=== PATIENT | female | born 1945 | race Caucasian/White ===

== ENCOUNTER 2017-09-27 05:43 | Observation (INO) | payer OTHER ==
--- NOTE | 2017-09-21 14:07 | GHP ---
[f rep st] PREOP HISTORY AND PHYSICAL CURRENT COMPLAINT: Left knee pain. HISTORY OF PRESENT ILLNESS: The patient is a 72-year-old female with a several year history of left knee pain, worsening with use and with time. She wishes to have surgery in order to resolve the prob rebecca. DRUG ALLERGIES: Include sulfa medications. CURRENT MEDICATIONS: Include levothyroxine and Travatan Z. PRIOR MEDICAL PROBLEMS: Include arthritis, cancer, osteoporosis, and thyroid issues. PRIOR SURGERIES: Include orthopedic surgery x1 and oncology surgery x1. SOCIAL HISTORY: She has never been a smoker. She does not drink alcohol. PHYSICAL EXAMINATION: EYES: Pupils are equal, round, and reactive to light. CHEST: Clear to auscu ltation. HEART: Regular rate and rhythm. ABDOMEN: Soft and nontender. EXTREMITIES: Knee reveals mild varus deformity with osteophytic spurring noted medially. IMAGING: X-ray exam reveals [id number] osteoarthritic changes. PLAN: Take her to the operating room to undergo a left total knee arthroplasty. /[id number]/MODL
[2017-09-27] MEDS ORDERED: LR 1,000 ML IV ONE (06:12)
[2017-09-27] MEDS ORDERED: LIDOCAINE 1% 2 ML INJ ID PRN (06:13)
--- NOTE | 2017-09-27 06:50 | PDANEPAE ---
ANE History of Present Illness L knee osteoarthritis ANE Past Medical History - Cardiovascular History Hx Hypertension: No Hx Arrhythmias: No Hx Chest Pain: No Hx Coronary Artery / Peripheral Vascular Disease: No Hx CHF / Valvular Disease: No Hx Palpitations: No - Pulmonary History Hx COPD: No Hx Asthma/Reactive Airway Disease: No Hx Recent Upper Respiratory Infection: No Hx Oxygen in Use at Home: No Hx Sleep Apnea: No Sleep Apnea Screening Result - Last Documented: Negative - Neurologic History Hx Cerebrovascular Accident: No Hx Seizures: Yes Hx Dementia: No Neurologic History Comment: SEIAURES YRS AGO WHEN FIRST DX W/MS - Endocrine History Hx Diabetes: No Hypothyroid: Yes Hyperthyroid: No Obesity: no Endocrine History Comment: HYPOTHYROID - Renal History Hx Renal Disorders: No - Liver History Hx Hepatic Disorders: No - Neurological & Psychiatric Hx Hx Neurological and Psychiatric Disorders: No - Cancer History Hx Cancer: No Cancer History Comment: BREAST CANCER - Congenital Disorder History Hx Congenital Disorders: No - GI History GERD: no Hx Gastrointestinal Disorders: No - Other Health History Other Health History: ECZEMA SCALP - Chronic Pain History Chronic Pain: Yes (R HIP & L KNEE) - Surgical History Prior Surgeries: 1997 FRANCESCA LUMPECTOMY. SCOPE R KNEE. R TKA. EGD. WRIST SURG ANE Review of Systems Review of Systems: - Exercise capacity METS (RN): 4 METS ANE Patient History - Allergies Allergies/Adverse Reactions: Sulfa (Sulfonamide Antibiotics) Allergy (Intermediate, Verified 10/28/10 09:11) RASH, ITCHY - Home Medications Home Medications: Acetaminophen [Tylenol 325mg (*)] 325 mg PO DAILY PRN 09/02/17 [Last Taken Unknown] Ibuprofen [Motrin (*)] 200 mg PO DAILY PRN 09/02/17 [Last Taken Unknown] Levothyroxine [Synthroid 25 mcg (*)] 25 mcg PO DAILY06 09/02/17 [Last Taken Unknown] Travoprost Z 0.004% [Travatan Z 0.004% (*)] 1 drops EACHEYE HS 09/02/17 [Last Taken Unknown] - Anes Hx Anes Hx: no prior problems - Smoking Hx Smoking Status: Never smoked Marijuana use: No - Alcohol Use Alcohol Use: Rarely - Family Anes Hx Family Anes Hx: neg - N/A Family Hx Anesthesia Complications: NEG ANE Labs/Vital Signs - Vital Signs Height: 162.56 cm Weight: 74.843 kg ANE Physical Exam - Airway Neck exam: decreased ROM Mallampati Score: Class 3 Mouth exam: normal dental/mouth exam - Pulmonary Pulmonary: no respiratory distress, no rales or rhonchi, clear to auscultation - Cardiovascular Cardiovascular: regular rate and rhythym, no murmur, rub, or gallop - ASA Status ASA Status: III ANE Anesthesia Plan Anesthesia Plan: MAC, spinal Total IV Anesthesia: No
[2017-09-27] MEDS ORDERED: THROMBIN (BOVINE) 5,000 UNIT VIAL TP ONE ×2 (06:51→06:55)
[2017-09-27] MEDS ORDERED: BUPIVACAINE 0.5% 30 ML SDV ONE ×2 (06:51→07:26)
[2017-09-27] MEDS ORDERED: CALCIUM CHLORIDE 1 GM/10 ML INJ ONE (06:51)
[2017-09-27] MEDS ORDERED: BACITRACIN 50,000 UNITS/10 ML SYR IRR ONE (06:52)
[2017-09-27] MEDS ORDERED: POLYMYXIN B SULFATE 500,000 UNIT/10 ML SYR IRR ONE (06:52)
[2017-09-27] MEDS ORDERED: TRANEXAMIC ACID 1,000 MG/10 ML VIAL ONE (06:56)
[2017-09-27] MEDS ORDERED: fentaNYL 100 MCG/2 ML INJ ONE ×2 (07:06→09:04)
[2017-09-27] MEDS ORDERED: PROPOFOL/EMULSION 500 MG/50 ML BOTTLE IV ONE (07:06)
--- NOTE | 2017-09-27 07:15 | PDHPUP ---
History & Physical Update H&P update statement: This history and physical update is based on an assessment of the patient which was completed after admission or registration (within 24 hours), but prior to the surgery/procedure. H&P update: H&P reviewed & patient examined, no change in patient's condition since H&P completed
[2017-09-27] MEDS ORDERED: ACETAMINOPHEN 500 MG TAB PO ONE (07:18)
[2017-09-27] MEDS ORDERED: TRANEXAMIC ACID 3,000 MG in NS (SYRINGE) 50 ML IRR ONE (07:18)
[2017-09-27] MEDS ORDERED: ceFAZolin 2 GM/SWFI 2 GM/20 ML SYR IVP ONE (07:18)
[2017-09-27] MEDS ORDERED: PREGABALIN 150 MG CAP PO ONE (07:18)
[2017-09-27] MEDS ORDERED: ROPIVACAINE 0.2% 80 MG, EPINEPHrine 0.2 MG, KETOROLAC TROMETHAMINE 30 MG, morphINE 10 M... IU ONE (07:18)
[2017-09-27] MEDS ORDERED: LIDOCAINE 2% 5 ML SDV ONE (07:40)
[2017-09-27] MEDS ORDERED: ONDANSETRON 4 MG/2 ML VIAL ONE (07:42)
[2017-09-27] MEDS: ceFAZolin 1 GM VIAL ONE ×4 (07:46→08:47)
[2017-09-27] MEDS ORDERED: DEXAMETHASONE 4 MG/ML VIAL ONE (08:00)
[2017-09-27] MEDS ORDERED: PROMETHAZINE HCL 25 MG/ML INJ IVP PRN ×2 (08:15→09:23)
[2017-09-27] MEDS ORDERED: epHEDrine SULFATE 10 MG/ML SYR IVP PRN (08:15)
[2017-09-27] MEDS ORDERED: fentaNYL 100 MCG/2 ML INJ IVP PRN (08:15)
[2017-09-27] MEDS ORDERED: HYDROCODONE/APAP 5/325 TAB PO PRN (08:15)
[2017-09-27] MEDS ORDERED: oxyCODONE IR 5 MG TAB PO PRN ×2 (08:15→09:23)
[2017-09-27] MEDS ORDERED: ACETAMINOPHEN 500 MG TAB PO PRN (08:15)
[2017-09-27] MEDS ORDERED: NALOXONE HCL 0.4 MG/ML INJ IVP PRN (08:15)
[2017-09-27] MEDS ORDERED: LR 500 ML IV PRN (08:15)
[2017-09-27] MEDS ORDERED: PHENYLEPHRINE HCL 100 MCG/ML SYR IVP PRN (08:15)
[2017-09-27] MEDS ORDERED: ONDANSETRON 4 MG/2 ML VIAL IVP PRN ×2 (08:15→09:23)
[2017-09-27] MEDS ORDERED: ROPIVACAINE HCL 150 MG/30 ML INJ ONE (08:48)
[2017-09-27] MEDS ORDERED: TAPENTADOL HCL 50 MG TAB PO PRN (09:23)
[2017-09-27] MEDS ORDERED: BISACODYL 10 MG SUPP PR PRN (09:23)
[2017-09-27] MEDS ORDERED: LACTULOSE 20 GM/30 ML UDCUP PO PRN (09:23)
[2017-09-27] MEDS ORDERED: PROMETHAZINE HCL 25 MG SUPPR PR PRN (09:23)
[2017-09-27] MEDS ORDERED: POLYETHYLENE GLYCOL 3350 17 GM PKT PO PRN (09:23)
[2017-09-27] MEDS ORDERED: DIPHENOXYLATE/ATROPINE LOMOTIL 1 TAB PO PRN (09:23)
[2017-09-27] MEDS ORDERED: METOCLOPRAMIDE 10 MG/2 ML VIAL IVP PRN (09:23)
[2017-09-27] MEDS ORDERED: CYCLOBENZAPRINE 10 MG TAB PO PRN (09:23)
[2017-09-27] MEDS ORDERED: TEMAZEPAM 15 MG CAP PO PRN (09:23)
[2017-09-27] MEDS ORDERED: MAGNESIUM HYDROXIDE 30 ML UDCUP PO PRN (09:23)
[2017-09-27] MEDS ORDERED: diphenhydrAMINE 25 MG CAP PO PRN (09:23)
[2017-09-27] MEDS ORDERED: ONDANSETRON DISINTEGRATING 4 MG TAB PO PRN (09:23)
--- NOTE | 2017-09-27 09:23 | POSTOPPROG ---
Post Op Note Date of Operation: 09/27/17 Surgeon: Bev Goins Waiter/Waitress Formal: coltrain Anesthesia: Epidural, LMA Pre-op Diagnosis: l knee oa Procedure: l tkr Inf/Abcess present in the surg proc area at time of surgery?: No Depth: Deep Incisional (Fascial) EBL: 100-500
[2017-09-27] MEDS ORDERED: KETOROLAC 30 MG/1 ML SDV ONE (09:27)
[2017-09-27] MEDS ORDERED: LR 1,000 ML IV SCH (09:30)
--- NOTE | 2017-09-27 10:40 | GOP ---
[f rep st] OPERATIVE REPORT DATE OF OPERATION: 09/27/2017 SURGEON: Bev Goins MD OILER BANDER: Sarwat Hood, CSFA, LSA. ANESTHESIA: By LMA plus epidural nerve block per surgeon's request. PREOPERATIVE DIAGNOSIS: Left knee osteoarthritis. POSTOPERATIVE DIAGNOSIS: Left knee osteoarthritis. PROCEDURE PERFORMED: Left total knee arthroplasty. FINDINGS: INDICATIONS: This is a 72-year-old female with a long history of left knee pain worsening with use a nd with time despite multiple conservative measures. She wishes to have surgery in order to resolve the problem. DESCRIPTION OF PROCEDURE: Patient brought to the operating room. The left side had been identified as the correct side by the patient, nurse, physician, once in the operating room. She was given epid ural nerve block and then placed under general anesthesia using an LMA. Once asleep, tourniquet plac ed around the upper portion of left thigh, and the left lower extremity sterilely prepped and draped in usual fashion using GSI solution. Once prepped and draped, the limb was exsanguinated, tourniquet inflated to 250 mmHg. A linear incision was made on the anterior portion of the knee 1 handbreadth above and below the patella with sharp dissection carried down through the skin and subcutaneous laye rs with bleeding controlled using electrocautery. A medial parapatellar incision was made through th e extensor mechanism, with patella brought to the side but not everted. She was noted to have abunda nt amount of synovium within the suprapatellar pouch as well as grade 4 chondral changes to the karimi lofemoral and medial compartments. The ACL as well as the medial and lateral meniscus were removed. Drill hole was made 1 cm anterior to the intercondylar notch with an intramedullary guide placed wit hin the knee set at 5 degrees of valgus and set to remove 10 mm of bone. Oscillating saw was used to remove the distal end of the femur until achieving a flat cut. Cartilage was removed from the poste rior condyles of the femur. A sizing guide was placed on the end of the femur. Noted a size 5 seeme d to fit best. Therefore, drill holes were made. A size 5 5-in-1 cutting block was put into place. Oscillating saw was used to remove the anterior, posterior, and chamfer cuts of the femur. A trial [address], noted to fit securely. Lug holes were drilled for a size 5 femoral component. The trial was then removed. Tibia was brought to maximal flexion, subluxed anteriorly. External ti bial guide was put into place and set in neutral varus valgus, and slight posterior slope, set to rem ove 7 mm of bone from the lower side of the tibia which was the medial side. Once pinned into place, the guide was removed and a drop garrett was used to ensure proper alignment and the locking pin was the n placed in the tibial cutting guide, oscillating saw was used with the proximal portion of the tibia . Trial femur, tibia, and polyethylene component were put into place, noted be able achieve full ext ension. Therefore, the trials were removed. The knee was brought back to full flexion, and multiple sizing guides were placed on the cut surface of the tibia. Noted a size 4 seemed to fit best. Ther efore, the trial was pinned in slight external rotation. The keel punch passed through the plate. T rials were then removed. The knee brought to full extension. The patella was then everted, held in place with towel clamps. Patella was measured to be 20 mm in thickness. Oscillating saw was used to remove the posterior portion of the patella, leaving 14 mm of bone. Multiple sizes were trialed on the cut surface of bone with a 35 mm patella button seemed to fit best. Therefore, lug holes drilled for 35 mm button. All cut surfaces of bone were thoroughly irrigated with antibiotic solution with pulsatile lavage while cement was being made. Once cement was mixed and doughy, it was placed on the proximal end of the tibia with a size 4 Journey tibial base plate from [employer]. Excess bogdan ent was removed using Curran elevators. Cement was then placed on the posterior skids of the femoral component with cement placed on the distal and anterior portions of the femur and a size 5 left cruci ate-retaining Journey II Oxinium femoral component from [employer] was put into place, and exce ss cement removed using Curran elevator. A trial liner was placed in the tibial tray, and the knee br ought to full extension under pressurized cement. Cement was then placed on the cut surface of the b one of the patella, with a 35 mm patellar button put into place and excess cement removed using Curran elevator. Once cement had hardened, any excess cement that was found was removed using combination of osteotome rongeur. Multiple trials were placed in the tibial tray. Noted a size 12 seemed to fit best, giving good range of motion, good stability. Therefore, a 12 mm polyethylene insert was put i nto the tibial tray. Once in place joint cocktail was injected in the posterior capsule in the perio steum of the femur, tibia, and extensor mechanism. Tranexamic acid was irrigated into the wound, and the tourniquet was then released at 57 minutes. Any bleeding that was found was cauterized. 0 Vicr yl suture was used to close the extensor mechanism in a qrpfzt-hk-ezvco type stitch with Plasma Gel p laced intra-articularly. 0 Vicryl and 2-0 Vicryl suture used for the subcutaneous layers with Plasma Gel placed externally to the extensor mechanism, and then a 3-0 V-Loc suture in a running subcuticul ar stitch was used for the skin. The wound was dressed with Steri-Strips, Xeroform, 4 x 4's, wrapped in Kerlix. Leg was completely undraped in the operating room. Tourniquet removed from the thigh, a nd José Luis wrap placed around the knee. Patient was then woken up, extubated, transferred onto a stretch er, and sent to recovery room in good condition. /[id number]/MODL
--- NOTE | 2017-09-27 11:04 | POSTANESTH ---
Post Anesthetic Evaluation Cardiovascular Status: Normal, Stable Respiratory Status: Normal, Stable Level of Consciousness/Mental Status: Can Participate in Eval Pain Control: Adequate, Prn Tx Ordered Nausea/Vomiting Control: Adequate, Prn Tx Ordered Complications Possibly Related to Anesthesia: None Noted
[2017-09-27] MEDS ORDERED: ceFAZolin 2 GM/DEXTROSE 100 ML IV SCH (14:00)
[2017-09-27] MEDS: ACETAMINOPHEN 325 MG TAB PO SCH ×3 (14:15→23:35)
[2017-09-27] MEDS: ceFAZolin 2 GM/SWFI 2 GM/20 ML SYR IVP SCH ×2 (14:15→21:35)
[2017-09-27] MEDS: KETOROLAC 15 MG/1 ML SDV IVP SCH ×3 (14:15→23:34)
[2017-09-27] MEDS: traMADol 50 MG TAB PO SCH ×3 (14:16→23:35)
[2017-09-27] MEDS: FAMOTIDINE 20 MG TAB PO SCH (20:16)
[2017-09-27] MEDS: SENNOSIDES/DOCUSATE SODIUM TAB PO SCH (20:16)
[2017-09-27] MEDS ORDERED: TRAVOPROST Z 0.004% 2.5 ML OPHT.BTL EACHEYE SCH (21:00)
[2017-09-28] MEDS: ACETAMINOPHEN 325 MG TAB PO SCH ×2 (05:44→12:22)
[2017-09-28] MEDS: KETOROLAC 15 MG/1 ML SDV IVP SCH (05:45)
[2017-09-28] MEDS: traMADol 50 MG TAB PO SCH ×2 (05:45→12:22)
[2017-09-28] MEDS ORDERED: LEVOTHYROXINE 25 MCG TAB PO SCH (06:00)
[2017-09-28] MEDS ORDERED: RIVAROXABAN 10 MG TAB PO SCH (09:00)
[2017-09-28] MEDS: SENNOSIDES/DOCUSATE SODIUM TAB PO SCH (09:11)
[2017-09-28] MEDS: FAMOTIDINE 20 MG TAB PO SCH (09:12)
--- NOTE | 2017-09-28 09:45 | SOAPPROG ---
SOAP Progress Note Assessment/Plan: Assessment: Plan: d/c home 09/28/17 09:45 Subjective: doing well ready for d/c Objective: Vital Signs Temp Pulse Resp BP Pulse Ox 36.6 C 66 16 109/59 L 90 L 09/28/17 07:36 09/28/17 07:36 09/28/17 07:36 09/28/17 07:36 09/28/17 07:36 Laboratory Results 09/28/17 04:05 09/27/17 09/28/17 09/29/17 05:59 05:59 05:59 Intake Total 1300 Output Total 550 Balance 750 cdi, calf nt, nvi - Time Spent With Patient Time Spent With Patient: 15 - Pending Discharge Pending Discharge Within 24 Hours: Yes Pending Discharge Within 48 Hours: No Pending Discharge Date: 09/29/17 Pending Discharge Time: 11:00 ICD10 Worksheet Patient Problems: Problems Problem Status Onset Arthritis of left knee Acute - ICD10 Problem Qualifiers (1) Arthritis of left knee
--- NOTE | 2017-09-28 09:48 | PDIAF ---
- Diagnosis Code Status: Full Code - Medication Management Discharge Medications: Medications to Continue on Transfer Acetaminophen [Tylenol 325mg (*)] 325 mg PO DAILY PRN 09/02/17 [Last Taken Unknown] Ibuprofen [Motrin (*)] 200 mg PO DAILY PRN 09/02/17 [Last Taken Unknown] Levothyroxine [Synthroid 25 mcg (*)] 25 mcg PO DAILY06 09/02/17 [Last Taken Unknown] Travoprost Z 0.004% [Travatan Z 0.004% (*)] 1 drops EACHEYE HS 09/02/17 [Last Taken Unknown] Acetaminophen [Tylenol 325mg (*)] 650 mg PO Q6HRS tab 09/28/17 [Last Taken Unknown] Rivaroxaban [Xarelto 10mg (*)] 10 mg PO DAILY tab 09/28/17 [Last Taken Unknown] oxyCODONE IR [Oxycodone Ir (*)] 5 - 10 mg PO Q3HRS PRN tab 09/28/17 [Last Taken Unknown] traMADol [Ultram 50 mg (*)] 50 mg PO Q6HRS tab 09/28/17 [Last Taken Unknown] Discharge Medications: Refer to the Discharge Home Medication list for PRN reason. PICC Care - Routine: N/A - Orders Services needed: Physical Therapy Diet Recommendation: no restrictions on diet Diet Texture: Regular Texture Diet - Follow Up Care Current Providers and Referrals: BRITNEY CHUA [Other] Bev Goins MD [Medical Doctor] -
[2017-09-28 11:11] VITALS: BP 110/65
--- NOTE | 2017-09-28 12:37 | ASMTCMCOM ---
CM Note CM Note Notes: Pt s/p L TKA. PT rec [facility], 24/hr supervision, OT rec home. Pt medically stable for d/c with [facility] PT. Orders sent in Allscripts. Pt address/phone verified. Date Signed: 09/28/2017 12:37 PM Electronically Signed By:ROGELIO Irizarry
--- NOTE | 2017-09-28 14:13 | ASDISCHSUM ---
Discharge Information Plan Status:Home with Home Health Medically Cleared to Leave: Discharge Date:09/28/2017 12:43 PM D/C Disposition:Home Health Service ADT D/C Disposition:Home, Routine, Self-Care Projected Discharge Date:09/28/2017 11:00 AM Transportation at D/C: Discharge Delay Reason: Follow-Up Date:09/28/2017 11:00 AM Discharge Slot: Final Diagnosis: Placement Information Referral Type:*Home Health Care Services Referral ID:[id number] Provider Name:[facility]ad[facility] [place] Address 1:[address] [address] Address 2: City:[place] Selection Factors: State:[place] Patient Contact Information Contact Name:GIULIA Relationship: Address:[address] City:[place] Alternate Phone: State/Zip Code:[place] [address] Email: Financial Information Financial Class:Medicare Primary Plan Desc:MEDICARE INPATIENT Primary Plan Number:[id number] Secondary Plan Desc:[facility] Secondary Plan Number:[id number] Assessment Information [facility] CM Progress Note CM Note CM Note Notes: Pt s/p L TKA. PT rec [facility], 24/hr supervision, OT rec home. Pt medically stable for d/c with [facility] PT. Orders sent in [employer]. Pt address/phone verified. Date Signed: 09/28/2017 12:37 PM Electronically Signed By:ROGELIO Irizarry Intervention Information
== END 2017-09-28 12:43 | disposition home or self-care (01) ==
LOC: F3N 05:43
PROVIDERS: ADMIT Orthopaedic Surgery; ATTEND Orthopaedic Surgery
PROC: 0SRD0JZ Replacement of Left Knee Joint with Synthetic Substitute, Open Approach (ICD-10-PCS; principal; 2017-09-27 07:15)
DX: M17.12 Unilateral primary osteoarthritis, left knee (principal)
CPT/HCPCS: 27447; 73560; 97110; 97116; 97161; 97165; G8978; G8979; G8980; G8987; G8988; G8989; C1713; J0171; J0690; J1100; J1885; J2270; J2405; J2704; J2795; J3010

== ENCOUNTER 2018-03-14 08:00 | Inpatient (IN) | payer OTHER ==
--- NOTE | 2018-03-13 20:54 | PDGENHP ---
History & Physical Chief Complaint: Left knee pain and instability s/p LTKA History of Present Illness: Lupe presents today for a repeat evaluation of her left knee s/p left TKA on 09/27/17. She reports no improvement in her knee pain or function since her previous visit. She continues to have a sense of increased laxity and instabillity in the knee which gives her the feeling that her knee is going to collapse on her. Going up stairs is difficult and scary for her. She continues to have focal pain in the anteromedial and anterolateral knee. She wishes to proceed with poly exchange. Pertinent Past, Social, Family History: PMH: arthritis, cancer, osteoporosis, thyroid problems, UTI. Social history: nonsmoker. Family history: non- contributory Relevant Physical Exam: Physical exam of the left knee demonstrates minimal diffuse swelling. She lacks 2-3 deg of full extension. Flexion to 120 deg. She has a mild increase in laxity to medial and lateral stresses of the knee when the knee is flexed at 90 deg. Stable to varus and valgus stressing at full extension and at 30 deg. Lachmans negative. She has a posterior sag in the knee when she crosses her knee. Her incision is healed with no evidence of infection. Cardiorespiratory Assessment: RRR, CTAB
[2018-03-14] MEDS ORDERED: POLYMYXIN B SULFATE 500,000 UNIT/10 ML SYR IRR ONE (08:02)
[2018-03-14] MEDS ORDERED: ceFAZolin 2 GM/DEXTROSE 100 ML IV ONE (08:11)
[2018-03-14] MEDS ORDERED: ROPIVACAINE 0.2% 80 MG, EPINEPHrine 0.2 MG, KETOROLAC TROMETHAMINE 30 MG, morphINE 10 M... IU ONE (08:11)
[2018-03-14] MEDS ORDERED: TRANEXAMIC ACID 3,000 MG in NS (SYRINGE) 50 ML IRR ONE (08:11)
[2018-03-14] MEDS ORDERED: FAMOTIDINE 20 MG TAB PO ONE (08:11)
[2018-03-14] MEDS ORDERED: LR 1,000 ML IV ONE (08:26)
[2018-03-14] MEDS ORDERED: LIDOCAINE 1% 2 ML INJ ID PRN (08:26)
[2018-03-14] MEDS ORDERED: LIDOCAINE 2% 5 ML SDV ONE (08:59)
[2018-03-14] MEDS ORDERED: BUPIVACAINE/DEXTROSE 7.5MG/ML 2 ML SPINAL AMP SP ONE (08:59)
[2018-03-14] MEDS ORDERED: fentaNYL 100 MCG/2 ML INJ ONE (09:00)
[2018-03-14] MEDS ORDERED: PROPOFOL/EMULSION 500 MG/50 ML BOTTLE IV ONE (09:00)
--- NOTE | 2018-03-14 09:09 | PDANEPAE ---
ANE History of Present Illness laxity in L TKA, here for revision L TKA ANE Past Medical History - Cardiovascular History Hx Hypertension: No Hx Arrhythmias: No Hx Chest Pain: No Hx Coronary Artery / Peripheral Vascular Disease: No Hx CHF / Valvular Disease: No Hx Palpitations: No - Pulmonary History Hx COPD: No Hx Asthma/Reactive Airway Disease: No Hx Recent Upper Respiratory Infection: No Hx Oxygen in Use at Home: No Hx Sleep Apnea: No Sleep Apnea Screening Result - Last Documented: Negative - Neurologic History Hx Cerebrovascular Accident: No Hx Seizures: Yes Hx Dementia: No Neurologic History Comment: SEIZURES YRS AGO WHEN FIRST DX W/MS - Endocrine History Hx Diabetes: No Endocrine History Comment: HYPOTHYROID - Renal History Hx Renal Disorders: No - Liver History Hx Hepatic Disorders: No - Neurological & Psychiatric Hx Hx Neurological and Psychiatric Disorders: No - Cancer History Hx Cancer: Yes Cancer History Comment: BREAST - Congenital Disorder History Hx Congenital Disorders: No - GI History Hx Gastrointestinal Disorders: No - Other Health History Other Health History: MS. ECZEMA SCALP. GLAUCOMA - Chronic Pain History Chronic Pain: Yes (LT KNEE) - Surgical History Prior Surgeries: UPPER LID BLEPH 10/2017. LT TOTAL KNEE 09/2017. 1997 FRANCESCA LUMPECTOMY. SCOPE R KNEE. FRANCESCA CATARACTS. R TKA. EGD. WRIST SURG ANE Review of Systems Review of Systems: - Exercise capacity METS (RN): 4 METS ANE Patient History - Allergies Allergies/Adverse Reactions: Sulfa (Sulfonamide Antibiotics) Allergy (Intermediate, Verified 10/28/10 09:11) RASH, ITCHY - Home Medications Home Medications: Ibuprofen [Motrin (*)] 200 mg PO DAILY PRN 09/02/17 [Last Taken 03/08/18] Levothyroxine [Synthroid 25 mcg (*)] 25 mcg PO DAILY06 09/02/17 [Last Taken 06:30] Travoprost Z 0.004% [Travatan Z 0.004% (*)] 1 drops EACHEYE HS 09/02/17 [Last Taken 03/13/18] - NPO status NPO Since - Liquids (Date): 03/14/18 NPO Since - Liquids (Time): 06:30 NPO Since - Solids (Date): 03/13/18 NPO Since - Solids (Time): 20:00 - Anes Hx Anes Hx: no prior problems - Smoking Hx Smoking Status: Never smoked - Family Anes Hx Family Hx Anesthesia Complications: NEG ANE Labs/Vital Signs - Vital Signs Blood Pressure: 130/72 Heart Rate: 62 Respiratory Rate: 18 O2 Sat (%): 96 Height: 162.56 cm Weight: 70.307 kg ANE Physical Exam - Airway Neck exam: decreased ROM Mallampati Score: Class 3 Mouth exam: normal dental/mouth exam - Pulmonary Pulmonary: no respiratory distress, clear to auscultation - Cardiovascular Cardiovascular: regular rate and rhythym, no murmur, rub, or gallop - ASA Status ASA Status: III ANE Anesthesia Plan Anesthesia Plan: MAC, spinal Total IV Anesthesia: No
[2018-03-14] MEDS ORDERED: MIDAZOLAM 2 MG/2 ML VIAL ONE (09:46)
[2018-03-14] MEDS ORDERED: BUPIVACAINE/EPI 0.5% 30 ML SDV ONE (10:26)
[2018-03-14] MEDS ORDERED: BACITRACIN 50,000 UNITS/10 ML SYR IRR ONE (10:30)
[2018-03-14] MEDS ORDERED: oxyCODONE IR 5 MG TAB PO PRN ×2 (10:31→11:23)
[2018-03-14] MEDS ORDERED: NALOXONE HCL 0.4 MG/ML INJ IVP PRN (10:31)
[2018-03-14] MEDS ORDERED: fentaNYL 100 MCG/2 ML INJ IVP PRN (10:31)
[2018-03-14] MEDS ORDERED: DIAZEPAM 5 MG/ML 1 ML SYR IVP PRN (10:31)
[2018-03-14] MEDS ORDERED: PROMETHAZINE HCL 25 MG/ML INJ IVP PRN ×2 (10:31→11:23)
[2018-03-14] MEDS ORDERED: LR 500 ML IV PRN (10:31)
[2018-03-14] MEDS ORDERED: MEPERIDINE 25 MG/0.5 ML AMP IVP PRN (10:31)
[2018-03-14] MEDS ORDERED: HYDROmorphONE/DILAUDID 2 MG/ML INJ IVP PRN (10:31)
[2018-03-14] MEDS ORDERED: MIDAZOLAM 2 MG/2 ML VIAL IVP ONE (10:38)
[2018-03-14] MEDS ORDERED: CALCIUM CHLORIDE 1 GM/10 ML INJ ONE (10:46)
[2018-03-14] MEDS ORDERED: THROMBIN (BOVINE) 5,000 UNIT VIAL TP ONE (10:46)
[2018-03-14] MEDS ORDERED: TAPENTADOL HCL 50 MG TAB PO PRN (11:23)
[2018-03-14] MEDS ORDERED: diphenhydrAMINE 25 MG CAP PO PRN (11:23)
[2018-03-14] MEDS ORDERED: ONDANSETRON 4 MG/2 ML VIAL IVP PRN (11:23)
[2018-03-14] MEDS ORDERED: MAGNESIUM HYDROXIDE 30 ML UDCUP PO PRN (11:23)
[2018-03-14] MEDS ORDERED: POLYETHYLENE GLYCOL 3350 17 GM PKT PO PRN (11:23)
[2018-03-14] MEDS ORDERED: PROMETHAZINE HCL 25 MG SUPPR PR PRN (11:23)
[2018-03-14] MEDS ORDERED: BISACODYL 10 MG SUPP PR PRN (11:23)
[2018-03-14] MEDS ORDERED: ONDANSETRON DISINTEGRATING 4 MG TAB PO PRN (11:23)
[2018-03-14] MEDS ORDERED: LACTULOSE 20 GM/30 ML UDCUP PO PRN (11:23)
[2018-03-14] MEDS ORDERED: TEMAZEPAM 15 MG CAP PO PRN (11:23)
[2018-03-14] MEDS ORDERED: CYCLOBENZAPRINE 10 MG TAB PO PRN (11:23)
[2018-03-14] MEDS ORDERED: METOCLOPRAMIDE 10 MG/2 ML VIAL IVP PRN (11:23)
[2018-03-14] MEDS ORDERED: DIPHENOXYLATE/ATROPINE LOMOTIL 1 TAB PO PRN (11:23)
--- NOTE | 2018-03-14 11:23 | POSTOPPROG ---
Post Op Note Date of Operation: 03/14/18 Surgeon: Bev Goins Cap Blocker: coltrain Anesthesia: Epidural, IV Sedation Pre-op Diagnosis: l tkr laxity Procedure: l tkr poly exchange Inf/Abcess present in the surg proc area at time of surgery?: No Depth: Deep Incisional (Fascial) EBL: 100-500
[2018-03-14] MEDS ORDERED: LR 1,000 ML IV SCH (11:30)
--- NOTE | 2018-03-14 11:50 | POSTANESTH ---
Post Anesthetic Evaluation Cardiovascular Status: Normal, Stable Respiratory Status: Normal, Stable Level of Consciousness/Mental Status: Can Participate in Eval Pain Control: Adequate, Prn Tx Ordered Nausea/Vomiting Control: Adequate, Prn Tx Ordered Complications Possibly Related to Anesthesia: None Noted (moving bilateral lower extrem on exam, no questions or complaints)
--- NOTE | 2018-03-14 12:31 | GOP ---
DATE OF OPERATION: 03/14/2018 SURGEON: Bev Goins MD NEUROSURGEON: Bev Goins MD. IT TRAINEE: ROMEL Turner LSA, whose presence was medically necessary. ANESTHESIA: Epidural plus IV sedation. PREOPERATIVE DIAGNOSIS: Left total knee replacement laxity. POSTOPERATIVE DIAGNOSIS: Left total knee replacement laxity. PROCEDURE PERFORMED: Left total knee replacement polyethylene exchange. FINDINGS: INDICATIONS: This is a 73-year-old female, who had previously undergone a left total knee replacemen t and noted increasing laxity with the knee in flexion and would like this dealt with. DESCRIPTION OF PROCEDURE: Patient brought to the operating room after the left side had been identif ied as correct side by the patient, nurse and physician. Once in the operating room she was given ep idural nerve block and then placed under IV sedation. She had a tourniquet placed around the upper p ortion of the left thigh, and the left lower extremity sterilely prepped and draped in usual fashion using GSI solution. Once prepped and draped, limb was exsanguinated, tourniquet inflated to 250 mmHg . Using a prior scar incision was made on the anterior portion the knee with sharp dissection tiff d down through the skin and subcutaneous layers with bleeding controlled using electrocautery. A med ial parapatellar incision was made through the extensor mechanism, with the patella brought to the si de but not everted. The polyethylene was able to be removed and once removed multiple trials were pl aced with the tibial tray. Noted that an 18 mm liner seemed to fit best and with a lipped liner seem ed to fit even better. Therefore, the wound was thoroughly irrigated with antibiotic solution and an 18 mm size 3-4 left Journey II deep dished articular insert was put into place. Once in place, anuj ent was noted to be much more stable both in flexion and extension. Joint cocktail was injected into the posterior capsule and tranexamic acid irrigated through the wound. Tourniquet was released at 1 5 minutes. Bleeding was controlled using electrocautery. 0 Vicryl suture was then used in a figure- of-eight type stitch in order to close the wound with plasma gel placed intra-articularly. 0 Vicryl and 2-0 Vicryl suture used with plasma gel placed in subcutaneous tissue, and then a 3-0 V-Loc suture in a running subcuticular stitch used for the skin. The wound was dressed with Steri-Strips, Xerofo rm, 4 x 4, and Kerlix. Leg was completely undraped in the operating room, tourniquet removed from th e thigh and an José Luis wrap placed around the knee. The patient was then transferred onto a stretcher, a nd sent to recovery room in good condition. TOURNIQUET TIME: 15 minutes. /[id number]/MODL
--- NOTE | 2018-03-14 12:38 | PDMN ---
Medical Necessity Medical necessity: [facility] IP only surgery; CPT 70072 L tka w/ revision
[2018-03-14] MEDS: ACETAMINOPHEN 325 MG TAB PO SCH ×3 (14:45→23:16)
[2018-03-14] MEDS: KETOROLAC 15 MG/1 ML SDV IVP SCH ×3 (14:46→23:18)
[2018-03-14] MEDS: traMADol 50 MG TAB PO SCH ×4 (14:56→23:18)
[2018-03-14] MEDS: ceFAZolin 2 GM/DEXTROSE 100 ML IV SCH (17:41)
[2018-03-14] MEDS: SENNOSIDES/DOCUSATE SODIUM TAB PO SCH (21:56)
[2018-03-14] MEDS: FAMOTIDINE 20 MG TAB PO SCH (21:56)
[2018-03-15] MEDS: ceFAZolin 2 GM/DEXTROSE 100 ML IV SCH (02:32)
[2018-03-15] MEDS: ACETAMINOPHEN 325 MG TAB PO SCH ×2 (05:06→11:49)
[2018-03-15] MEDS: traMADol 50 MG TAB PO SCH ×2 (05:06→11:50)
[2018-03-15] MEDS: KETOROLAC 15 MG/1 ML SDV IVP SCH (05:06)
[2018-03-15] MEDS: SENNOSIDES/DOCUSATE SODIUM TAB PO SCH (08:10)
[2018-03-15] MEDS: FAMOTIDINE 20 MG TAB PO SCH (08:11)
[2018-03-15] MEDS ORDERED: RIVAROXABAN 10 MG TAB PO SCH (09:00)
--- NOTE | 2018-03-15 10:49 | ASMTCMCOM ---
CM Note CM Note Notes: Pt had planned total knee, resides with spouse. PT rec [facility]. Pt requests [facility] who she has had before. Referral sent in [employer]. CM to follow. Date Signed: 03/15/2018 10:48 AM Electronically Signed By:ROGELIO Irizarry
[2018-03-15 11:38] VITALS: BP 108/68
[2018-03-15] MEDS ORDERED: ACETAMINOPHEN 500 MG TAB PO PRN (12:32)
--- NOTE | 2018-03-15 12:35 | PDIAF ---
- Diagnosis Diagnosis: Left knee poly exchange Code Status: Full Code - Medication Management Discharge Medications: Medications to Continue on Transfer Levothyroxine [Synthroid 25 mcg (*)] 25 mcg PO DAILY06 09/02/17 [Last Taken 06:30] Travoprost Z 0.004% [Travatan Z 0.004% (*)] 1 drops EACHEYE HS 09/02/17 [Last Taken 03/13/18] Acetaminophen [Tylenol ES 500 mg (*)] 1,000 mg PO Q6H PRN 03/14/18 [Last Taken 03/14/18 00:30] traMADol [Ultram 50 mg (*)] 50 mg PO Q6HRS #30 tab 03/15/18 [Last Taken Unknown] Discharge Medications: Refer to the Discharge Home Medication list for PRN reason. - Orders Services needed: Physical Therapy, Occupational Therapy Diet Recommendation: no restrictions on diet Diet Texture: Regular Texture Diet Additional Instructions: Patient will WBAT. Prescription for pain medication in chart. Aspirin x 10 days post op. Patient will follow up in 10 days for repeat evaluation and wound check - Follow Up Care Current Providers and Referrals: BRITNEY CHUA MD [Other] Bev Goins MD [Medical Doctor] -
--- NOTE | 2018-03-15 14:54 | ASMTCMCOM ---
CM Note CM Note Notes: Pt medically stable for d/c with [facility], orders sent in Allscripts. Date Signed: 03/15/2018 02:54 PM Electronically Signed By:ROGELIO Irizarry
--- NOTE | 2018-03-15 14:54 | ASMTLACE ---
LACE Length of stay for Answers: 2 days current admission Acuity / Level of Answers: Yes Care: Did the patient have an inpatient admission? Comorbidities - select Answers: Opioid dependence all that apply / Chronic pain Other Notes: Hx of cancer; Thyroid problems # of Emergency department Answers: 0 visits in the last 6 months Score: 10 Date Signed: 03/15/2018 02:53 PM Electronically Signed By:ROGELIO Irizarry
[2018-03-15] MEDS ORDERED: TRAVOPROST Z 0.004% 2.5 ML OPHT.BTL EACHEYE SCH (21:00)
[2018-03-16] MEDS ORDERED: LEVOTHYROXINE 25 MCG TAB PO SCH (06:00)
--- NOTE | 2018-03-16 12:33 | ASDISCHSUM ---
Discharge Information Plan Status:Home with Home Health Medically Cleared to Leave: Discharge Date:03/15/2018 01:13 PM CM D/C Disposition:Home Health Service ADT D/C Disposition:Home Health Service Projected Discharge Date:03/15/2018 11:00 AM Transportation at D/C: Discharge Delay Reason: Follow-Up Date:03/15/2018 11:00 AM Discharge Slot: Final Diagnosis: Placement Information Referral Type:*Home Health Care Services Referral ID:[id number] Provider Name:[facility] [place] Address 1:[address] [address] Address 2: City:[place] Selection Factors: State:[place] Patient Contact Information Contact Name:CACOOKIEKRISTINE Relationship: Address:[address] City:[facility] Phone: State/Zip Code:[place] [address] Email: Financial Information Financial Class:Medicare Primary Plan Desc:MEDICARE INPATIENT Primary Plan Number:[id number] Secondary Plan Desc:[facility] Secondary Plan Number:[id number] Assessment Information LACE LACE Length of stay for Answers: 2 days current admission Acuity / Level of Answers: Yes Care: Did the patient have an inpatient admission? Comorbidities - select Answers: Opioid dependence all that apply / Chronic pain Other Notes: Hx of cancer; Thyroid problems # of Emergency department Answers: 0 visits in the last 6 months Score: 10 Date Signed: 03/15/2018 02:53 PM Electronically Signed By:ROGELIO Irizarry [facility] CM Progress Note CM Note CM Note Notes: Pt had planned total knee, resides with spouse. PT rec [facility]. Pt requests [facility] who she has had before. Referral sent in [employer]. CM to follow. Date Signed: 03/15/2018 10:48 AM Electronically Signed By:ROGELIO Irizarry [facility] CM Progress Note CM Note CM Note Notes: Pt medically stable for d/c with [facility], orders sent in [employer]. Date Signed: 03/15/2018 02:54 PM Electronically Signed By:ROGELIO Irizarry Intervention Information Intervention Type:*Incorrect Registration Date of Service:03/14/2018 12:38 PM Patient Type:Observation Staff Member:TANO Angeles Courtney Hours: Discipline: Severity: Comment:
== END 2018-03-15 13:13 | disposition home health service (06) | DRG 465 ==
LOC: F3N 08:00 → OBSVTOIN 11:26 → F3N 14:15
PROVIDERS: ATTEND Orthopaedic Surgery
PROC: 0SPD09Z Removal of Liner from Left Knee Joint, Open Approach (ICD-10-PCS; principal; 2018-03-14 09:30)
PROC: 0SUD09Z Supplement Left Knee Joint with Liner, Open Approach (ICD-10-PCS; principal; 2018-03-14 09:30)
DX: T84.023A Instability of internal left knee prosthesis, initial encounter (principal); G35 Multiple sclerosis; E03.9 Hypothyroidism, unspecified; M81.0 Age-related osteoporosis without current pathological fracture; Z23 Encounter for immunization
CPT/HCPCS: 97110-GP; 97116-GP; 97161-GP; 97165-GO; G0008; G8978-GP-CK; G8979-GP-CI; G8980-GP-CI; G8987-GO-CI; G8988-GO-CI; G8989-GO-CI; J0171; J0690; J1885; J2250; J2270; J2704; J2795; J3010